=== PATIENT | female | born 1965 | race Caucasian/White ===

== ENCOUNTER 2019-05-23 14:10 | Inpatient (IN) | payer OTHER ==
[~2019-05-23] VITALS: Ht 137.2 cm; Wt 77.2 kg
[2019-05-23 15:05] VITALS: Ht 137.2 cm; Wt 77.2 kg
[2019-05-23 16:42] LABS: microscopic required? NO
[2019-05-23 16:55] LABS: UA SPECIFIC GRAVITY 1.015 (1.005-1.035); urine erythrocyte NEGATIVE (NEGATIVE)
[2019-05-23 17:14] LABS: BASOPHIL % 0.2 % (0-2); PLATELET COUNT 190 x10^3mcL (130-400); RED CELL DISTRIBUTION WIDTH 12.7 % (11.5-14.5)
[2019-05-23 17:15] LABS: CALCIUM 8.9 mg/dL (8.5-10.1); CARBON DIOXIDE 27.9 mmol/L (21-32); CHLORIDE SERUM 100 mmol/L (98-107); CREATININE SERUM 0.7 mg/dL (0.6-1.0); GFR1 > 60 mL/min; GLUCOSE SERUM 127 mg/dL (74-106); POTASSIUM SERUM 3.6 mmol/L (3.5-5.1); SODIUM SERUM 137 mmol/L (136-145)
[2019-05-23 17:20] LABS: ALKALINE PHOSPHATASE 355 U/L (46-116); ALT/SGPT 472 U/L (14-59); AST/SGOT 410 U/L (15-37); BILIRUBIN TOTAL 2.8 mg/dL (0.20-1.00); LIPASE 102 IU/L (73-393)
[2019-05-23 17:22] LABS: TOTAL PROTEIN, SERUM 8.6 g/dL (6.4-8.2)
[2019-05-23] MEDS ORDERED: PEPCID AC20 M2 PO (19:44)
[2019-05-23] MEDS ORDERED: NORCO1 TA2 PO (19:45)
[2019-05-23 20:42] VITALS: BP 104/72
[2019-05-24 06:04] VITALS: BP 130/69
[2019-05-24 06:40] LABS: ALKALINE PHOSPHATASE 277 U/L (46-116); ALT/SGPT 428 U/L (14-59); AST/SGOT 221 U/L (15-37); BILIRUBIN TOTAL 1.5 mg/dL (0.20-1.00); CALCIUM 8.2 mg/dL (8.5-10.1); CARBON DIOXIDE 25.1 mmol/L (21-32); CHLORIDE SERUM 106 mmol/L (98-107); CREATININE SERUM 0.6 mg/dL (0.6-1.0); GFR1 > 60 mL/min; GLUCOSE SERUM 80 mg/dL (74-106); POTASSIUM SERUM 3.2 mmol/L (3.5-5.1); SODIUM SERUM 142 mmol/L (136-145); TOTAL PROTEIN, SERUM 6.8 g/dL (6.4-8.2)
[2019-05-24 06:43] LABS: ALBUMIN 3.1 g/dL (3.4-5.0)
[2019-05-24 08:04] VITALS: BP 114/71
[2019-05-24 13:01] VITALS: BP 114/71
[2019-05-24 17:26] VITALS: BP 125/44
[2019-05-24 20:28] VITALS: BP 124/66
[2019-05-25 05:46] VITALS: BP 120/59
[2019-05-25 08:44] VITALS: BP 109/55
[2019-05-25 12:15] VITALS: BP 129/52
[2019-05-25] MEDS ORDERED: TYLENOL WITH CO1 TA2 PO (15:19)
[2019-05-25 16:45] VITALS: BP 104/72
[2019-05-25 17:39] VITALS: BP 104/72
== END 2019-05-25 18:28 | disposition home or self-care (01) | DRG 252 ==
LOC: ED 14:10 → MU 18:57
PROVIDERS: Emergency Medicine; Internal Medicine Gastroenterology; ADMIT Internal Medicine Pulmonary Disease
PROC: 0FC98ZZ Extirpation of Matter from Common Bile Duct, Via Natural or Artificial Opening Endoscopic (ICD-10-PCS; principal; 2019-05-25 09:30)
DX: K91.86 Retained cholelithiasis following cholecystectomy (principal); K85.10 Biliary acute pancreatitis without necrosis or infection; K76.0 Fatty (change of) liver, not elsewhere classified; E87.6 Hypokalemia; R74.0 Nonspecific elevation of levels of transaminase and lactic acid dehydrogenase [LDH]; E66.9 Obesity, unspecified
CPT/HCPCS: 43260; 74181; C1769; G0378; J1610; J2250; J2270; J2405; J2543; J3010; J3480; J3490; J7030; J7120; J7121; Q0092; Q9967